=== PATIENT | female | born 1990 | race Caucasian/White ===

== ENCOUNTER 2019-03-03 12:37 | Emergency (ER) | payer SELFPAY ==
[~2019-03-03] VITALS: Ht 162.6 cm; Wt 62.7 kg
[2019-03-03 12:48] VITALS: BP 131/94
== END 2019-03-03 14:35 | disposition left against medical advice (07) ==
LOC: EMS 12:37
DX: M54.5 Low back pain (principal); Z53.21 Procedure and treatment not carried out due to patient leaving prior to being seen by health care provider